=== PATIENT | male | born 1955 | race Caucasian/White ===

== ENCOUNTER 2025-03-27 21:06 | Emergency (ER) | payer MEDICARE, MEDICAID ==
[~2025-03-27] VITALS: Ht 165.1 cm; Wt 72.0 kg
[~2025-03-27 21:06] MED LIST: ATOR-2 PO; CHLO25TA2 PO; EMPA25TA MT; LISI20TA31 PO; METO-539 PO; PROT40 MT; SUCR1TAB MT; TERA10CA4 MT; TERA10CA4 PO; WARF2.5T83 MT
[2025-03-27 21:15] VITALS: O2SAT 100
[2025-03-27 21:27] VITALS: BP 143/73; PULSE 69; RESP 14; TEMP 36.9; O2SAT 99
[2025-03-27 21:51] LABS: BASOPHILS % 0.5 % (0.0-2.0); DIFFERENTIAL COMMENT 1; EOSINOPHILS % 1.3 % (0.0-5.0); HEMATOCRIT. 40.7 % (42.0-52.0); HEMOGLOBIN. 12.9 g/dL (14.0-18.0); LYMPHOCYTES % 24.3 % (20.0-50.0); MEAN CORPUSCULAR HEMOGLOBIN 25.6 pg (28.0-32.0); MEAN CORPUSCULAR HGB CONC 31.8 g/dL (31.0-37.0); MEAN CORPUSCULAR VOLUME 80.4 fL (80.0-94.0); MEAN PLATELET VOLUME 7.9 fl (7.4-10.4); MONOCYTES % 10.4 % (2.0-8.0); NEUTROPHILS % 63.5 % (40.0-76.0); PLATELET 175 x1000/uL (130-400); RED BLOOD CELL COUNT 5.06 mill/uL (4.7-6.1); WHITE BLOOD COUNT 8.6 x1000/uL (4.5-11.0)
[2025-03-27 21:52] LABS: ADD RBC MORPHOLOGY YES
[2025-03-27 21:57] LABS: CHLORIDE 107 mEq/L (98-107); POTASSIUM 4.5 mEq/L (3.5-5.1); SODIUM 141 mEq/L (136-145)
[2025-03-27 21:58] LABS: CARBON DIOXIDE 24 mEq/L (21-32)
[2025-03-27 22:00] LABS: PROTHROMBIN TIME 10.7 sec (9.6-11.0)
[2025-03-27 22:03] LABS: CREATININE 1.1 mg/dL (0.6-1.3); GLUCOSE 118 mg/dL (70-105); UREA NITROGEN BLOOD 23 mg/dL (9-23)
[2025-03-27 22:03] LABS: CLARITY URINE CLOUDY (CLEAR); COLOR URINE RED (YELLOW); GLUCOSE URINE 3+ (NEGATIVE); KETONES URINE NEGATIVE (NEGATIVE); LEUKOCYTE ESTERASE URINE 1+ (NEGATIVE); NITRITE URINE NEGATIVE (NEGATIVE); OCCULT BLOOD URINE 3+ (NEGATIVE); PROTEIN URINE 3+ (NEGATIVE); SPECIFIC GRAVITY URINE 1.035 (1.005-1.030); UROBILINOGEN URINE 0.2 E.U./dL (0.2-1.0)
[2025-03-27 22:07] LABS: BACTERIA URINE 3+; RBC URINE TNTC /hpf (0-2); SQUAMOUS EPITHELIAL CELL URINE FEW /lpf (RARE/1+)
[2025-03-27 22:23] LABS: PLATELET ESTIMATE NORMAL
[2025-03-27 22:24] LABS: ANISOCYTOSIS 3+; OVALOCYTES 1+
== END 2025-03-27 22:35 | disposition home or self-care (01) ==
LOC: ER 21:06
DX: R31.9 Hematuria, unspecified (principal); Z79.84 Long term (current) use of oral hypoglycemic drugs; Z79.01 Long term (current) use of anticoagulants; Z98.890 Other specified postprocedural states; Z79.899 Other long term (current) drug therapy; Z95.2 Presence of prosthetic heart valve
CPT/HCPCS: 36415; 80048; 81003; 85025; 99283